=== PATIENT | female | born 1965 | race Caucasian/White ===

== ENCOUNTER 2021-10-03 08:00 | Outpatient (CLI) | payer OTHER | END 2021-10-03 23:59 | LOC: LAB.N 08:00 | PROVIDERS: ATTEND Nurse Practitioner | DX: R30.0 Dysuria (principal) | CPT/HCPCS: 87077; 87086; 87181 ==

== ENCOUNTER 2021-10-30 08:00 | Outpatient (CLI) | payer OTHER | END 2021-10-30 23:59 | LOC: LAB.N 08:00 | PROVIDERS: ATTEND Family Medicine | DX: N39.0 Urinary tract infection, site not specified (principal) | CPT/HCPCS: 87077; 87086; 87181 ==

== ENCOUNTER 2021-11-07 08:00 | Outpatient (CLI) | payer OTHER | END 2021-11-07 23:59 | disposition home or self-care (01) | LOC: LAB.S 08:00 | PROVIDERS: ATTEND Registered Nurse | DX: R30.0 Dysuria (principal) | CPT/HCPCS: 87077; 87086; 87181 ==

== ENCOUNTER 2021-11-09 06:14 | Emergency (ER) | payer OTHER ==
[2021-11-09] MEDS ORDERED: FAMOTIDINE 20 MG TABLET PO STA (07:56)
[2021-11-09] MEDS ORDERED: DEXAMETHASONE 10 MG/ML VIAL IM STA (07:56)
--- NOTE | 2021-11-09 07:58 | ED Physician Documentation ---
History of Present Illness - Stated complaint Stated Complaint: SOA/RASH - Chief complaint Chief Complaint: Resp - History obtained from History obtained from: Patient - Additonal information Additional information: The patient comes to the emergency department chief complaint of urticaria, facial swelling, and itching that has been going on intermittently for the last 3 days. The patient states that she was on Macrobid for 2 weeks for a urinary tract infection and has had this before. She finished it the Morning of the day the symptoms broke out and by evening, had noticed development of some urticaria. The patient states that she has been taking Benadryl and initially this seemed to help but does not seem to be helping as much anymore. She was seen in urgent care last night for the hives and also because it seemed that her urinary tract infection was still going on, and was at that time placed on a prednisone taper starting at 40 mg, as well as Pepcid for her allergic reaction. She was also started on Keflex. The patient states that she seemed to be doing a little better during the day yesterday but woke up this morning and noticed that both her temples but especially on the right side seemed puffy. She also noticed some itchy hives on the right side of her neck. No oral or pharyngeal swelling. She did have a little bit of tightness when she woke up in the night, but feels like this has resolved now. The patient denies any previous history of allergy to any antibiotic or any other medication. She has never had symptoms like this before. No other complaints at this time. Review of Systems Ten Systems: 10 systems reviewed and negative Constitutional: reports: Reviewed and negative Eyes: reports: Reviewed and negative Ears: reports: Reviewed and negative Nose: reports: Reviewed and negative Throat: reports: Reviewed and negative Cardiac: reports: Reviewed and negative Respiratory: reports: Reviewed and negative GI: reports: Reviewed and negative : reports: Reviewed and negative Skin: reports: Rash Musculoskeletal: reports: Reviewed and negative Neurologic: reports: Reviewed and negative Psychiatric: reports: Reviewed and negative Endocrine: reports: Reviewed and negative Immunocompromised: reports: Reviewed and negative PD PAST MEDICAL HISTORY - Past Medical History Past Medical History: Yes : Chronic bladder infection - Past Surgical History Past Surgical History: Yes General: Cholecystectomy, Splenectomy - Present Medications Home Medications: Ambulatory Orders Medication Instructions Recorded Confirmed EPINEPHrine [Epinephrine] 0.3 mg IJ ONCE PRN #1 dis.syr 11/09/21 predniSONE [Deltasone] 60 mg PO DAILY 3 Days #9 tablet 11/09/21 - Allergies Allergies/Adverse Reactions: Allergies Allergy/AdvReac Type Severity Reaction Status Date / Time nitrofurantoin Allergy Rash Verified 11/09/21 06:28 [From Macrobid] - Social History Does the pt smoke?: No Smoking Status: Never smoker Does the pt drink ETOH?: No Does the pt have substance abuse?: No - Immunizations Immunizations are current?: Yes PD ED PE NORMAL - Vitals Vital signs reviewed: Yes - General General: Alert and oriented X 3, No acute distress, Well developed/nourished - HEENT HEENT: Atraumatic, PERRL, EOMI, Moist mucous membranes, Other (Mild edema over patient's right orthodoxy and slightly over the left. No other facial edema noted.) - Neck Neck: Supple, no meningeal sign - Cardiac Cardiac: RRR, No murmur, Strong equal pulses - Respiratory Respiratory: No respiratory distress, Clear bilaterally, Other (No stridor) - Abdomen Abdomen: Soft, Non tender, Non distended - Derm Derm: Normal color, Warm and dry, Other (Urticarial rash noted over left lateral neck. No other rash.) - Extremities Extremities: No deformity, No edema - Neuro Neuro: Alert and oriented X 3, billet heater 2-12 intact, Normal speech, Other (Grossly intact) - Psych Psych: Normal mood, Normal affect Results - Vitals Vitals: Oxygen O2 Source Room air PD MEDICAL DECISION MAKING - ED course Complexity details: considered differential, d/w patient ED course: I discussed with the patient that at this point in time, she is on the appropriate treatment for allergic reaction and does not have any evidence at this point of Impending anaphylaxis. I am not sure why she continues to have flareups of the urticaria, as she cannot pinpoint anything else that is new for her and has not been ill recently. I have discussed with her that I do wonder if starting another antibiotic so soon, even though she has not previously been allergic to Keflex, has caused further immune flareup. The patient only has 4 more days of the Keflex, and at this point, as long as she does not develop anap hylactic symptoms, can go and finish the course. I will increase the prednisone to 60 mg for 3 days, rather than the taper, as the patient is only on 20 mg according to the taper at this point. I have also prescribed an EpiPen for the patient, just in case she has needed this. We have discussed the usual indications for return. Departure - Departure Disposition: 01 Home, Self Care Clinical Impression: Allergic reaction Qualifiers: Encounter type: initial encounter Qualified Code(s): T78.40XA - Allergy, unspecified, initial encounter Condition: Stable Instructions: ED Allergic Reaction General Other Follow-Up: Dariel Kay MD [Provider Admit Priv/Credential] - Prescriptions: predniSONE [Deltasone] 60 mg PO DAILY 3 Days #9 tablet EPINEPHrine [Epinephrine] 0.3 mg IJ ONCE PRN #1 dis.syr PRN Reason: Anaphylaxis Discharge Date/Time: 11/09/21 08:26
[2021-11-09 08:19] VITALS: BP 139/77
== END 2021-11-09 08:26 | disposition home or self-care (01) ==
LOC: ED 06:14
DX: R22.0 Localized swelling, mass and lump, head (principal); L50.9 Urticaria, unspecified; T78.40XA Allergy, unspecified, initial encounter
CPT/HCPCS: 99282; 99283; A9270

== ENCOUNTER 2022-01-28 13:25 | Outpatient (CLI) | payer OTHER | END 2022-01-28 23:59 | disposition home or self-care (01) | LOC: LAB.N 13:25 | PROVIDERS: ATTEND Physician Assistant Medical | DX: N39.0 Urinary tract infection, site not specified (principal) | CPT/HCPCS: 87077; 87086; 87181 ==

== ENCOUNTER 2023-02-19 08:00 | Outpatient (CLI) | payer OTHER | END 2023-02-19 23:59 | disposition home or self-care (01) | LOC: LAB.N 08:00 | PROVIDERS: ATTEND Physician Assistant Medical | DX: N39.0 Urinary tract infection, site not specified (principal) | CPT/HCPCS: 87086; 87181 ==

== ENCOUNTER 2023-10-22 08:00 | Outpatient (CLI) | payer OTHER | END 2023-10-22 23:59 | disposition home or self-care (01) | LOC: LAB.N 08:00 | PROVIDERS: ATTEND Registered Nurse | DX: N39.0 Urinary tract infection, site not specified (principal) | CPT/HCPCS: 87086; 87181 ==